=== PATIENT | female | born 1995 | race Caucasian/White ===

== ENCOUNTER 2022-11-08 14:41 | Emergency (ER) | payer SELFPAY ==
[~2022-11-08] VITALS: Ht 165.1 cm; Wt 91.0 kg
[2022-11-08 14:55] VITALS: BP 155/108
[2022-11-08 17:47] LABS: BASOPHILS % 0.5 % (0.0-2.0); EOSINOPHILS % 1.6 % (0.0-5.0); LYMPHOCYTES % 27.3 % (20.0-50.0); MEAN CORPUSCULAR VOLUME 78.1 fL (81.0-99.0); MEAN PLATELET VOLUME 7.6 fl (7.4-10.4); MONOCYTES % 7.6 % (2.0-8.0); PLATELET 354 x1000/uL (130-400); RED BLOOD CELL COUNT 4.99 mill/uL (4.2-5.4); RED CELL DISTRIBUTION WIDTH 13.9 % (11.6-14.6)
[2022-11-08 17:52] LABS: CHLORIDE 105 mEq/L (98-107)
[2022-11-08 18:02] LABS: HCG SCREEN NEGATIVE
== END 2022-11-08 18:44 | disposition home or self-care (01) ==
LOC: ER 14:41 → EDBD 14:41 → ER 18:44
DX: N93.8 Other specified abnormal uterine and vaginal bleeding (principal)
CPT/HCPCS: 36415; 76830; 76856; 80053; 84703; 85025; 99284; Z7610